=== PATIENT | female | born 1970 | race Caucasian/White ===

== ENCOUNTER → 2017-09-23 | Outpatient (CLI) | payer OTHER ==
--- NOTE | 2017-09-25 11:37 | MM ---
Reason for exam: screening (asymptomatic). Last mammogram was performed 2 years and 5 months ago. History: Benign right breast aspiration of the right breast, December 02, 2012. Benign right breast aspiration additional of the right breast, December 02, 2012. Physical Findings: A clinical breast exam by your physician is recommended on an annual basis and results should be correlated with mammographic findings. MG 3D Screening Mammo W/Cad Bilateral CC and MLO view(s) were taken. Prior study comparison: May 02, 2015, bilateral MG 3d screening mammo w/cad. March 16, 2014, bilateral MG diagnostic mammo w CAD BRENNA. The breast tissue is extremely dense which could obscure a lesion on mammography. Previous mammotome biopsy in the right breast. No significant changes when compared with prior studies. ASSESSMENT: Negative, BI-RAD 1 RECOMMENDATION: Routine screening mammogram of both breasts in 1 year.
== END | disposition home or self-care (01) ==
LOC: RADMAMWWP 14:19
PROVIDERS: ATTEND Obstetrics & Gynecology
DX: Z12.31 Encounter for screening mammogram for malignant neoplasm of breast (principal)
CPT/HCPCS: 77063; 77067

== ENCOUNTER → 2018-09-28 | Outpatient (CLI) | payer OTHER ==
--- NOTE | 2018-09-28 15:33 | XR ---
EXAMINATION TYPE: XR cervical spine comp DATE OF EXAM: 09/28/2018 COMPARISON: NONE HISTORY: Pain TECHNIQUE: Four views are submitted. FINDINGS: There are no compression deformities. The prevertebral soft tissue structures are within normal limi ts. There is degenerative disc disease at C3-4 and more pronounced C4-5, C5-6 and C6-C7. There is a slight anterolisthesis of C7 on T1 and there is multilevel facet arthropathy. Foraminal encroachment level C4-C7 suspected. Odontoid view nondiagnostic. There is a slight anterolisthesis of C2 relative to C3. IMPRESSION: 1. Multilevel significant degenerative disc disease and facet arthropathy with suspected foraminal en croachment. Recommend follow-up MRI.
== END | disposition home or self-care (01) ==
LOC: RADXRMAIN 14:47
PROVIDERS: ATTEND Family Medicine
DX: M50.31 Other cervical disc degeneration, high cervical region (principal); M46.92 Unspecified inflammatory spondylopathy, cervical region
CPT/HCPCS: 72050

== ENCOUNTER → 2018-11-25 | Outpatient (CLI) | payer OTHER ==
--- NOTE | 2018-11-26 07:53 | MM ---
Reason for exam: additional evaluation requested from prior study. Last mammogram was performed 1 year and 2 months ago. History: Benign right breast aspiration of the right breast, December 02, 2012. Benign right breast aspiration additional of the right breast, December 02, 2012. Physical Findings: Nurse Summary: 0.5 x 0.5cm nodule in the right breast at 9 o'clock and two 0.5 x 0.5cm nodules in the left breast at 11 o'clock and 12 o'clock (nurse ts). MG 3D Diag Mammo W/Cad BRENNA Bilateral CC and MLO view(s) were taken. XCCL, spot compression CC, and spot compression MLO view(s) were taken of the right breast. Prior study comparison: September 23, 2017, bilateral MG 3d screening mammo w/cad. May 02, 2015, bilateral MG 3d screening mammo w/cad. The breast tissue is heterogeneously dense. This may lower the sensitivity of mammography. Finding: There is a 10 mm equal density (isodense) mass in the posterior position of the right breast. Previous mammotome biopsy in the right breast. These results were verbally communicated with the patient and result sheet given to the patient on 11/25/18. ASSESSMENT: Incomplete: need additional imaging evaluation, BI-RAD 0 RECOMMENDATION: Ultrasound of both breasts.
--- NOTE | 2018-11-26 08:11 | USB ---
Reason for exam: additional evaluation requested from abnormal screening. History: Benign right breast aspiration of the right breast, December 02, 2012. Benign right breast aspiration additional of the right breast, December 02, 2012. US Breast Limited BILAT Right limited breast ultrasound including focal area of concern, retroareolar and axilla demonstrates a 0.3 x 0.3 x 0.4cm lesion too small to characterize at 9 o'clock, a 0.7 x 0.3 x 0.6cm cystic lesion at 11 o'clock, a 0.5 x 0.5 x 0.7cm cystic lesion at 11 o'clock and a 0.9 x 0.6 x 0.8cm cystic lesion at 12 o'clock. Left limited breast ultrasound including focal area of concern, retroareolar and axilla demonstrates a 0.9 x 0.7 x 0.9cm solid lesion at 11 o'clock and a 0.7 x 0.5 x 0.6cm mixed lesion at 2 o'clock. These results were verbally communicated with the patient and result sheet given to the patient on 11/25/18. ASSESSMENT: Suspicious, BI-RAD 4 RECOMMENDATION: Ultrasound core biopsy of the left breast. (11 o'clock and 2 o'clock lesions) Called Dr. Blair with mammographic findings and has scheduled an appointment for the patient for 12/03/18 at 3:[address] Marrero. Biopsy scheduled for 12/22/18 at 12:20. PRELIMINARY REPORT CALLED AND FAXED TO DR. MARRERO ON 11/26/18.
== END | disposition home or self-care (01) ==
LOC: RADMAMWWP 13:37
PROVIDERS: ATTEND Obstetrics & Gynecology
DX: N64.4 Mastodynia (principal); R92.8 Other abnormal and inconclusive findings on diagnostic imaging of breast
CPT/HCPCS: 77062; 77066

== ENCOUNTER → 2018-12-03 | Outpatient (CLI) | payer OTHER ==
[2018-12-03 15:26] VITALS: BP 105/67; PULSE 61; RESP 16; TEMP 98.1; BMI 21.6
--- NOTE | 2018-12-03 16:57 | P.GSHP ---
History of Present Illness H&P Date: 12/03/18 Chief Complaint: abnormal mammogram and ultrasound, pain in the right breast The patient is a 48 -year-old white female with a complaint of pain in the upper outer quadrant of the right breast for approximately 5 months. The pain is not constant. It is made worse with touch. It radiates to the nipple area. The pain is not related to her menstrual cycle. It is not cyclical is not related to morning and night and she is uncertain as to what precipitates the pain. The patient has had right breast cyst aspirated in the past which have been benign. Patient states that the pain reminds her of and she was with her first child and was exposed to cold. The patient states she has bilateral nodular breast and states that she states she may feel a new area of nodularity in the upper outer quadrant area of the right breast. The patient gets annual mammography performed [place] [id number]. This revealed dense breast and a 10 mm equal density mass in the posterior position of the right breast. Bilateral breast ultrasound was recommended. On bilateral breast ultrasound the patient was noted to have multiple cysts in the right breast, and 2 areas of concern in the left breast 8.9 x 0.7 cm solid lesion at 11:00 and 8.7 x 0.6 mm mixed lesion at 2:00. She was recommended to undergo ultrasound-guided core biopsy of the lesion at 11:00 and 2:00 in the left breast. The patient drinks coffee in the morning. She does not drink other caffeinated beverages. She smokes approximately 1 pack per day. She is not exposed to secondhand smoke. She eats chocolate several times a week. She does not use control pills or hormones. Family history: none Hormonal History: menarche: 13 breast fed: yes, age at first : 20 irregular periods at this time, multiple cervical procedures for pre-cancer BCP: 5 years hormones: none Past surgical history: 1. Appendectomy 2. Tonsillectomy 3. Cervical procedures related to precancer Medical history: fibromyalgia Social History: smoke: 1PPD, since 16 alcohol: social, weekly drugs: none - Constitutional Constitutional: Denies chills, Denies fever - EENT Eyes: denies blurred vision, denies pain Ears: deny: decreased hearing, tinnitus Ears, nose, mouth and throat: Denies headache, Denies sore throat - Breasts Breasts: bilateral: as per HPI - Cardiovascular Cardiovascular: Denies chest pain, Denies shortness of breath - Respiratory Comment: smoker Respiratory: Denies cough, Denies 7 - Gastrointestinal Gastrointestinal: Denies abdominal pain, Denies diarrhea, Denies nausea, Denies vomiting - Genitourinary (Female) Genitourinary: Denies dysuria, Denies hematuria - Menstruation Comment: irregular cycles - Musculoskeletal Comment: arthritis Musculoskeletal: Reports myalgias - Integumentary Integumentary: Denies pruritus, Denies rash - Neurological Neurological: Reports numbness, Denies weakness - Psychiatric Psychiatric: Denies anxiety, Denies depression - Endocrine Endocrine: Denies fatigue, Denies weight change - Hematologic/Lymphatic Comment: none - Allergic/Immunologic Allergic/Immunologic: Reports seasonal allergies Past Medical History History of Any Multi-Drug Resistant Organisms: None Reported Smoking Status: Current every day smoker Medications and Allergies Home Medications Medication Instructions Recorded Confirmed Type Loratadine [Claritin] 10 mg PO DAILY 12/03/18 12/03/18 History Allergies Allergy/AdvReac Type Severity Reaction Status Date / Time No Known Allergies Allergy Unverified 12/03/18 15:26 Surgical - Exam Vital Signs Temp Pulse Resp BP Pulse Ox 98.1 F 61 16 105/67 100 12/03/18 15:23 12/03/18 15:23 12/03/18 15:23 12/03/18 15:23 12/03/18 15:23 BMI 21.6 - General well developed, well nourished, no distress - Eyes normal ocular movement - ENT no hearing loss, no congestion - Neck no masses, trachea midline - Respiratory normal respiratory effort, clear to auscultation - Cardiovascular Rhythm: regular Heart Sounds: normal: S1, S2 - Abdomen Abdomen: soft, non tender, no guarding, no rigid, no rebound - Integumentary normal turgor - Neurologic no disoriented, no combative - Musculoskeletal normal gait, normal posture - Psychiatric oriented to time, oriented to person, oriented to place, speech is normal, memory intact breast exam: Right breast: Multi-positional exam. Dense breast tissue with greatest density in the upper outer quadrant area, increased nodularity no specific mass identified Right axilla: No adenopathy of concern shoddy adenopathy Left breast: Multi-positional exam, dense breast tissue less dense than the right breast Left axilla: No adenopathy of concern however shotty adenopathy is present Results Mammogram and ultrasound results reviewed Assessment and Plan Assessment: Impression: 1. Abnormal mammogram and ultrasound 2. 2 areas of concern in left breast which would warrant ultrasound core biopsy 3.. Dense fibrocystic breast tissue 4. Mastodynia 5. Myalgias 6. Patient drinks caffeine, smokes cigarettes with increased nicotine, enjoys chocolate We have had a discussion regarding the increased effects of nicotine theophylline and caffeine on fibrocystic breast changes. I've encouraged Cynthia to decrease the intake of these things this may help with the fibrocystic breast pain. There is no evidence of any malignancy at this time. Have also recommended that the patient undergo the ultrasound core biopsy of 2 areas in the left breast. I will see her in follow-up after results of the pathology comes back from these. Plan: 1. I've encouraged the patient to decrease her intake of nicotine, theophylline, and caffeine I suspect that these may be related to the breast. I have provided a book on breast pain. 2. Consider primrose oil 3. Ultrasound core biopsy of 2 areas of concern in the left breast 4. Follow-up after ultrasound core biopsy Cc: Dr. Florence
== END | disposition home or self-care (01) ==
LOC: WWCWWP 14:50
PROVIDERS: ATTEND Surgery
DX: Z53.9 Procedure and treatment not carried out, unspecified reason (principal)

== ENCOUNTER → 2018-12-22 | Day surgery (SDC) | payer OTHER ==
[2018-12-22 11:35] VITALS: RESP 16; TEMP 98; BMI 22.3
[2018-12-22 13:35] VITALS: BP 97/63; PULSE 58
--- NOTE | 2018-12-22 15:18 | USB ---
EXAMINATION TYPE: US biopsy breast add'l VAD LT, US biopsy breast VAD LT, MG diagnostic mammo LT wo CAD DATE OF EXAM: 12/22/2018 CLINICAL HISTORY: R92.8 ABN MAMMO. TECHNIQUE: 2 site ultrasound guided core biopsy of left breast. COMPARISON: Ultrasound dated 11/25/2018 FINDINGS: The procedure of ultrasound guided core biopsy was explained to the patient. Benefits, alternatives, and risks were discussed. An informed consent was then obtained. Site A (11:00): The patient was placed in supine positioning for imaging and for the procedure. The overlying skin was prepped and draped in usual sterile fashion. 10 cc of lidocaine was used as anesthetic into the skin and subcutaneous tissue up to the 0.9 cm mass at the 11:00 position of the left breast in zone B/C. Under ultrasound guidance, a 12-gauge vacuum assisted biopsy gun device was used to obtain 4 core samples. Following this, a ribbon-shaped biopsy marker was left at the site of biopsy. Site (2:00): The patient was placed in supine positioning for imaging and for the procedure. The overlying skin was prepped and draped in usual sterile fashion. 10 cc of lidocaine was used as anesthetic into the skin and subcutaneous tissue up to the 0.7 cm mass at the 2:00 position of the left breast in zone B/C. Under ultrasound guidance, a 12-gauge vacuum assisted biopsy gun device was used to obtain 4 core samples. Following this, a coil-shaped biopsy marker was left at the site of biopsy. The patient tolerated the procedure well without any immediate complication. The patient was kept in the radiology department for short stay after the procedure and then discharged home in stable condition. IMPRESSION: Successful, uncomplicated 2 site ultrasound guided core biopsy of the left breast, possible fibrocystic change, full pathology results to follow. Pathology Results: Benign A. LEFT BREAST, SITE A AT 11 O'CLOCK, ULTRASOUND GUIDED CORE BIOPSY: Benign breast with stromal fibrosis. B. LEFT BREAST, SITE B AT 2 O'CLOCK, ULTRASOUND GUIDED CORE BIOPSY: Fibrocystic changes including stromal fibrosis, adenosis, and small cysts. Recommendation Follow up mammogram of the left breast in 6 months. ARTUR
== END | disposition home or self-care (01) ==
LOC: RADUSWWP 11:14
PROVIDERS: ATTEND Surgery
DX: N60.32 Fibrosclerosis of left breast (principal); N60.22 Fibroadenosis of left breast; N60.02 Solitary cyst of left breast
CPT/HCPCS: 88305; 77065; 19083; 19084; A4648

== ENCOUNTER → 2018-12-30 | Outpatient (CLI) | payer OTHER ==
[2018-12-30 09:06] VITALS: BP 119/72; PULSE 67; RESP 18; TEMP 98.3; BMI 22.3
--- NOTE | 2018-12-30 09:36 | P.PN ---
Subjective Progress Note Date: 12/30/18 The patient was initially [id number]. At that time she was drinking caffeinated beverages, smoking cigarettes, and enjoying chocolate. Since the last visit she underwent ultrasound core biopy of two sites in the left breast. Her pathology was benign. She does complain of tenderness at the site of the biopsies. She has decreased her caffeine intake, and decreased her chocolate intake. She is continuing to smoke and drink some caffeinated beverages. She has not yet started any primrose oil. She has had biopsy of the right side of her breast in the past several years ago which was benign. Her mammogram and ultrasound of November 2018 were reviewed with the radiologist. She has very dense breast, a marking clip was noted in the right breast which is not specifically correspond to the area of increased nodularity at this time in the upper quadrant region. After discussion with the patient who going to do an FNA of the area of probable increased nodularity. Family history: Negative Surgical history: 1. Appendectomy 2. Tonsillectomy 3. Cervical procedures related to 3 cancer Medical history: Fibromyalgia Social history: Smoke: One pack per day since Alcohol: Social Drugs: Negative Objective - Vital Signs Vital signs: Vital Signs Temp 98.3 F 12/30/18 08:50 Pulse 67 12/30/18 08:50 Resp 18 12/30/18 08:50 BP 119/72 12/30/18 08:50 Pulse Ox 100 12/30/18 08:50 Intake & Output 12/29/18 12/30/18 12/30/18 18:59 06:59 18:59 Weight 72.575 kg - Exam BMI 22.3 - Constitutional General appearance: Present: average body habitus, cooperative - EENT Eyes: Present: EOMI ENT: Present: hearing grossly normal - Neck Neck: Present: normal ROM - Respiratory Respiratory: bilateral: CTA - Cardiovascular Rhythm: regular Heart sounds: normal: S1, S2 - Integumentary Integumentary Comment(s): Examination of the left breast at the biopsy site reveals mild ecchymosis No evidence of infection Small hematomas noted Reexamination of the right breast reveals persistent increased nodularity at the upper outer quadrant region no definite dominant masses appreciated Right axilla: No adenopathy of concern was noted, although some shotty adenopathy noted Integumentary: Present: normal turgor Assessment and Plan Assessment: Impression: 1. Patient status post core biopsy 2 areas of concern in the left breast for benign 2. Very dense breast tissue with fibrocystic breast changes 3. Mastodynia 4. Increased fibroglandular tissue without lower quadrant of the right breast for which FNA was recommended 5. Myalgias 6. Patient drinks caffeine, smoke cigarettes, and enjoys chocolates Plan: 1. Patient will continue to decrease her intake of nicotine, caffeine, and theophylline 2. Await results of FNA of the right breast 3. Repeat bilateral mammogram and ultrasound in 6 months with physician exam at that time Cc: Dr. Florence
--- NOTE | 2018-12-30 09:39 | P.PCN ---
Date of Procedure: 12/30/18 Preoperative Diagnosis: Fibroglandular increased density right breast upper outer quadrant Postoperative Diagnosis: Same Procedure(s) Performed: Fine-needle aspiration right breast upper outer quadrant Surgeon: Francine Marrero Pathology: other (Cytology right breast upper outer quadrant) Condition: stable Disposition: same day Indications for Procedure: Increased nodularity right breast upper outer quadrant mammogram and ultrasound do not have any corresponding areas of concern Description of Procedure: The patient was placed in the recumbent position. The area of increased nodularity was prepped using alcohol. A 22-gauge needle on a 10 mL syringe was utilized to obtain a sample in the area. The needle was passed into the area of increased density and multiple passes were obtained to obtain suction on the syringe. The specimen was retrieved and processed for pathology. The patient tolerated procedure in stable condition. The patient will call next week for results. If the area shows that he has had patient will have an office biopsy the areas, otherwise the patient will be seen again in 6 months.
== END ==
LOC: WWCWWP 08:30
PROVIDERS: ATTEND Surgery
DX: N64.9 Disorder of breast, unspecified (principal)
CPT/HCPCS: 88173; 88305

== ENCOUNTER → 2019-10-14 | Outpatient (CLI) | payer OTHER ==
--- NOTE | 2019-10-14 11:11 | XR ---
EXAMINATION TYPE: XR chest 2V DATE OF EXAM: 10/14/2019 COMPARISON: NONE HISTORY: Shortness of breath and cough TECHNIQUE: Frontal and lateral views of the chest are obtained. FINDINGS: Faint reticular left basilar opacity and very mild bibasilar peribronchial cuffing are see n. Remainder the lungs are well aerated. Mild multilevel degenerative change of the thoracic spine. M inimal reverse S-shaped scoliosis of the visualized thoracolumbar spine. No pneumothorax or pleural e ffusion seen. IMPRESSION: Subtle left basilar reticular opacity and suspected mild bibasilar peribronchial cuffing . Consider bronchitis and left basilar atelectasis or developing pneumonia in the appropriate clinica l setting.
== END | disposition home or self-care (01) ==
LOC: RADXRMAIN 10:41
PROVIDERS: ATTEND Family Medicine
DX: R91.8 Other nonspecific abnormal finding of lung field (principal); J40 Bronchitis, not specified as acute or chronic
CPT/HCPCS: 71046

== ENCOUNTER → 2019-11-01 | Outpatient (CLI) | payer OTHER ==
--- NOTE | 2019-11-01 11:56 | XR ---
EXAMINATION TYPE: XR chest 2V DATE OF EXAM: 11/01/2019 COMPARISON: 10/14/2019 INDICATION: Pneumonia TECHNIQUE: Frontal and lateral views of the chest are obtained. FINDINGS: The heart size is normal. The pulmonary vasculature is normal. The lungs are clear. IMPRESSION: 1. No acute pulmonary process.
== END | disposition home or self-care (01) ==
LOC: RADXRMAIN 10:29
PROVIDERS: ATTEND Family Medicine
DX: J18.9 Pneumonia, unspecified organism (principal)
CPT/HCPCS: 71046

== ENCOUNTER → 2019-12-08 | Outpatient (CLI) | payer OTHER ==
--- NOTE | 2019-12-09 13:01 | ECHOF ---
Referral Reason:R07.89 atypical chest pain MEASUREMENTS -------- HEIGHT: 180.3 cm WEIGHT: 70.3 kg BP: RVIDd: 2.6 cm (< 3.3) IVSd: 1.0 cm (0.6 - 1.1) LVIDd: 4.6 cm (3.9 - 5.3) LVPWd: 1.0 cm (0.6 - 1.1) IVSs: 1.4 cm LVIDs: 2.8 cm LVPWs: 1.5 cm LA Diam: 2.6 cm (2.7 - 3.8) LAESV Index (A-L): 23.67 ml/m Ao Diam: 2.8 cm (2.0 - 3.7) AV Cusp: 1.8 cm (1.5 - 2.6) MV EXCURSION: 16.162 mm (> 18.000) MV EF SLOPE: 94 mm/s (70 - 150) EPSS: 0.7 cm MV E Baldev: 0.87 m/s MV DecT: 372 ms MV A Baldev: 0.61 m/s MV E/A Ratio: 1.43 FINDINGS -------- Sinus rhythm. This was a technically good study. The left ventricular size is normal. Left ventricular wall thickness is normal. Overall left vent ricular systolic function is low-normal with, an EF between 50 - 55 %. The right ventricle is normal in size. Normal LA size by volume 22+/-6 ml/m2. The right atrium is normal in size. Interatrial and interventricular septum intact. The aortic valve is trileaflet and appears structurally normal. The mitral valve is normal. Trace tricuspid regurgitation present. The aortic root size is normal. Normal inferior vena cava with normal inspiratory collapse consistent with estimated right atrial pre ssure of 5 mmHg. There is no pericardial effusion. CONCLUSIONS -------- 1. Sinus rhythm. 2. This was a technically good study. 3. The left ventricular size is normal. 4. Left ventricular wall thickness is normal. 5. Overall left ventricular systolic function is low-normal with, an EF between 50 - 55 %. 6. The right ventricle is normal in size. 7. Normal LA size by volume 22+/-6 ml/m2. 8. The right atrium is normal in size. 9. Interatrial and interventricular septum intact. 10. The aortic valve is trileaflet and appears structurally normal. 11. The mitral valve is normal. 12. Trace tricuspid regurgitation present. 13. The aortic root size is normal. 14. Normal inferior vena cava with normal inspiratory collapse consistent with estimated right atrial pressure of 5 mmHg. 15. There is no pericardial effusion. HOT PIPE GAUGER: JA Avitia
--- NOTE | 2019-12-12 09:59 | EST ---
EXERCISE STRESS AGE: 49 SEX: F HT: 71" WT: 155 PROTOCOL: Sin. STAGE: 4 DURATION OF EXERCISE: 13 minutes. HEART RATE REST: 69 BLOOD PRESSURE REST: 98/56 mmHg MAXIMUM HEART RATE ACHIEVED: 146 MAXIMUM BLOOD PRESSURE: 150/60 mmHg 85% MPHR: 146 100% MPHR: 172 METS: 12.1 INDICATIONS: Chest pain. CLINICAL INFORMATION: Stress data: Heart rate 69, blood pressure is 98/56 mmHg. Baseline EKG showed sinus mechanism. The patient exercised on the treadmill according to Sin protocol for a total of 13 minutes and achieved 12.1 METS with max heart rate was 146, which is about 85% of maximum predicted heart rate. Maximum blood pressure was 150/60 mmHg. Clinically the patient did not have no symptoms of chest pain or chest discomfort during the testing or on recovery and the EKG did not show any significant ST or T-wave abnormalities concerning for ischemia. CONCLUSION: 1. Excellent exercise tolerance. 2. Normal EKG in response to exercise. 3. Essentially normal stress test for the patient. MMODL / IJN: [id number] /
== END | disposition home or self-care (01) ==
LOC: RADNMMAIN 10:17
PROVIDERS: ATTEND Family Medicine
DX: I07.1 Rheumatic tricuspid insufficiency (principal)
CPT/HCPCS: 93017; 93306

== ENCOUNTER → 2021-05-01 | Outpatient (CLI) | payer OTHER ==
--- NOTE | 2021-05-02 09:22 | MM ---
Reason for exam: clinical finding. Last mammogram was performed 2 years and 4 months ago. History: Benign US biopsy breast VAD LT of the left breast, December 22, 2018. Benign US biopsy breast add'l VAD LT of the left breast, December 22, 2018. Benign right breast aspiration of the right breast, December 02, 2012. Benign right breast aspiration additional of the right breast, December 02, 2012. Physical Findings: Nurse did not find any significant physical abnormalities on exam. MG 3D Diag Mammo W/Cad BRENNA Bilateral CC and MLO view(s) were taken. Prior study comparison: December 22, 2018, left breast MG diagnostic mammo LT wo CAD. November 25, 2018, bilateral MG 3d diag mammo w/cad BRENNA. The breast tissue is extremely dense which could obscure a lesion on mammography. Previous mammotome biopsy in the right and left breast x 2. There is chronic nodularity bilaterally. Faint regional calcifications on the left are unchanged. These results were verbally communicated with the patient and result sheet given to the patient on 05/01/21. ASSESSMENT: Incomplete: need additional imaging evaluation, BI-RAD 0 RECOMMENDATION: Ultrasound of the right breast.
--- NOTE | 2021-05-02 09:24 | USB ---
Reason for exam: additional evaluation requested from abnormal screening. History: Benign US biopsy breast VAD LT of the left breast, December 22, 2018. Benign US biopsy breast add'l VAD LT of the left breast, December 22, 2018. Benign right breast aspiration of the right breast, December 02, 2012. Benign right breast aspiration additional of the right breast, December 02, 2012. US Breast RT Right complete breast ultrasound includes all four quadrants, the retroareolar region and axilla. Finding demonstrates a 13 x 8 x 14mm oval, cystic lesion at 12 o'clock and a 12 x 8 x 14mm oval, cystic lesion at 6 o'clock. Largest measured. Otherwise innumerable smaller simple cysts are present throughout. These results were verbally communicated with the patient and result sheet given to the patient on 05/01/21. ASSESSMENT: Benign, BI-RAD 2 RECOMMENDATION: Follow-up diagnostic mammogram of both breasts in 1 year.
== END | disposition home or self-care (01) ==
LOC: RADMAMWWP 14:58
PROVIDERS: ATTEND Obstetrics & Gynecology
DX: N60.01 Solitary cyst of right breast (principal); R92.1 Mammographic calcification found on diagnostic imaging of breast
CPT/HCPCS: 77062; 77066

== ENCOUNTER → 2022-12-17 | Outpatient (CLI) | payer OTHER ==
[2022-12-17 20:46] LABS: ALT 12 U/L (8-44); AST 15 U/L (13-35); Albumin 4.2 d/dL (3.8-4.9); Albumin/Globulin Ratio 1.91 Ratio (1.60-3.17); Alkaline Phosphatase 47 U/L (41-126); BUN/Creat Ratio 9.29 Ratio (12.00-20.00); Blood Urea Nitrogen 6.5 mg/dL (9.0-27.0); Calcium 8.9 mg/dL (8.7-10.3); Chloride 108 mmol/L (96-109); Globulin 2.2 d/dL (1.6-3.3); Glucose 93 mg/dL (70-110); Magnesium 1.9 mg/dL (1.5-2.4); Potassium 4.3 mmol/L (3.5-5.5); Sodium 141 mmol/L (135-145); T4, Free (Free Thyroxine) 1.49 ng/dL (0.80-1.80); Total Bilirubin 0.8 mg/dL (0.3-1.2); Total Protein 6.4 d/dL (6.2-8.2)
[2022-12-17 21:39] LABS: HGB 13.8 d/dL (12.0-15.0); MCH 32.8 pg (27.0-32.0); MCHC 32.9 d/dL (32.0-37.0); MCV 99.8 FL (80.0-97.0); NRBC Per 100 WBC 0 X 10*3/uL (0.00-0.01); Platelet Count 336 X 10*3/uL (140-440); RBC 4.21 X 10*6/uL (4.10-5.20); RDW 12.7 % (11.5-14.5); WBC 9.86 X 10*3/uL (4.50-10.00)
== END | disposition home or self-care (01) ==
LOC: LABWHC1 12:08
PROVIDERS: ATTEND Family Medicine
DX: Z00.00 Encounter for general adult medical examination without abnormal findings (principal); M79.605 Pain in left leg
CPT/HCPCS: 36415; 80053; 82306; 83036; 83735; 84439; 84443; 85027; 85379; 86787